=== PATIENT | male | born 1995 | race Caucasian/White ===

== ENCOUNTER 2021-06-02 17:59 | Emergency (ER) | payer MEDICAID ==
[~2021-06-02] VITALS: Ht 165.1 cm; Wt 77.3 kg
[2021-06-02] MEDS ORDERED: ALBU6.7H9 INH (18:10)
[2021-06-02] MEDS ORDERED: PRED20TA PO (18:10)
[2021-06-02 18:58] VITALS: BP 146/80
== END 2021-06-02 19:35 | disposition home or self-care (01) ==
LOC: ER 18:00
DX: J45.909 Unspecified asthma, uncomplicated (principal); Z20.822 Contact with and (suspected) exposure to COVID-19; F17.200 Nicotine dependence, unspecified, uncomplicated; Z88.0 Allergy status to penicillin; Z88.1 Allergy status to other antibiotic agents; Z79.899 Other long term (current) drug therapy
CPT/HCPCS: 36415; 99283; U0003; U0005

== ENCOUNTER 2021-11-15 00:18 | Emergency (ER) | payer MEDICAID ==
[~2021-11-15] VITALS: Ht 165.1 cm; Wt 7.3 kg
[~2021-11-15 00:18] MED LIST: ALBU6.7H9 INH
[2021-11-15] MEDS ORDERED: LIDOcaine 1% W/epiNEPHrine 1:200,000 10ml vial IJ ONE (01:25)
[2021-11-15] MEDS ORDERED: TETanus/Pertussis (Acell)/Diphther VAC/PF (Tdap-Adult) 0.5ml syringe IMVAC ONE (01:25)
[2021-11-15] MEDS ORDERED: LIDOcaine 1% W/epiNEPHrine 1:100,000 20ml vial IJ ONE (01:30)
[2021-11-15] MEDS ORDERED: DOXYCYCLINE 100MG CAPSULE PO STA (02:05)
[2021-11-15] MEDS ORDERED: HYDROcodone/acetaminophen 10/325mg tab PO ONE (02:05)
[2021-11-15] MEDS ORDERED: SULF1TAB49 PO (02:15)
[2021-11-15] MEDS ORDERED: NAPR-56 PO (02:15)
[2021-11-15] MEDS ORDERED: sulfamethoxazole/trimethoprim DS (800/160mg) tablet PO ONE (02:20)
[2021-11-15 02:49] VITALS: BP 121/78
== END 2021-11-15 02:53 | disposition home or self-care (01) ==
LOC: ER 00:18
DX: S81.812A Laceration without foreign body, left lower leg, initial encounter (principal); X58.XXXA Exposure to other specified factors, initial encounter; Y93.89 Activity, other specified; Y92.89 Other specified places as the place of occurrence of the external cause; Y99.8 Other external cause status
CPT/HCPCS: 12002; 90471; 90715; 99283

== ENCOUNTER 2023-02-17 16:20 | Emergency (ER) | payer MEDICAID ==
[~2023-02-17] VITALS: Ht 165.1 cm; Wt 69.0 kg
[~2023-02-17 16:20] MED LIST changes: +ALBU6.7H14 INH; -ALBU6.7H9 INH
[2023-02-17 17:10] LABS: BASOPHILS % (AUTO) 0.3 % (0-1); EOSINOPHILS % (AUTO) 0.2 % (0-6); HEMATOCRIT 47.3 % (42.0-52.0); HEMOGLOBIN 16.7 g/dl (14.0-17.9); LYMPHOCYTES # (AUTO) 3.3 X10'3 (1.1-4.8); LYMPHOCYTES % (AUTO) 30.7 % (21-51); MEAN CORPUSCULAR HEMOGLOBIN 31.6 PG (27.0-31.0); MEAN CORPUSCULAR HGB CONC 35.3 g/dL (33.0-36.5); MEAN CORPUSCULAR VOLUME 89.6 FL (78-98); MEAN PLATELET VOLUME 8.1 FL (7.4-10.4); MONOCYTES # (AUTO) 0.9 X10'3 (0-0.9); MONOCYTES % (AUTO) 8.3 % (2-12); NEUTROPHILS # (AUTO) 6.6 X10'3 (1.8-7.7); NEUTROPHILS % (AUTO) 60.5 % (42-75); PLATELET COUNT 273 X10'3 (140-440); RED BLOOD COUNT 5.28 X10'6 (4.70-6.10); RED CELL DISTRIBUTION WIDTH 13.2 % (11.5-14.5); WHITE BLOOD COUNT 10.9 X10'3 (4.5-11.0)
[2023-02-17 17:19] LABS: ALANINE AMINOTRANSFERASE 28 U/L (12-78); ALBUMIN 4.4 G/DL (3.4-5.0); ALBUMIN/GLOBULIN RATIO 1.3 (1.1-1.5); ALKALINE PHOSPHATASE 84 IU/L (46-116); ANION GAP 7 (8-16); ASPARTATE AMINO TRANSFERASE 16 U/L (10-37); BILIRUBIN,TOTAL 0.8 MG/DL (0.1-1.0); BLOOD UREA NITROGEN 7 MG/DL (7-18); BUN/CREATININE RATIO 7.5 (10.0-20.0); CALCIUM 9.1 MG/DL (8.5-10.1); CHLORIDE 104 MMOL/L (99-107); CREATININE 0.93 MG/DL (0.60-1.10); GLUCOSE 110 MG/DL (70-104); LIPASE < 50 U/L (73-393); POTASSIUM 3.4 MMOL/L (3.5-5.1); SODIUM 139 MMOL/L (135-145); TOTAL CARBON DIOXIDE 27.7 MMOL/L (24-32); TOTAL PROTEIN 7.7 G/DL (6.4-8.2); eGFR > 90 ML/MIN
--- NOTE | 2023-02-17 18:04 | NUR ---
Received patient in room 14.
[2023-02-17] MEDS ORDERED: normal saline 1000ML IV soln IVB ONE (19:10)
[2023-02-17 20:40] LABS: CLARITY,URINE CLEAR (Clear); COLOR,URINE YELLOW (Yellow); GLUCOSE, URINE NEGATIVE (Neg); KETONES,URINE TRACE mg/dl (Neg); LEUKOCYTE ESTERASE ,URINE NEGATIVE (Neg); NITRITES, URINE NEGATIVE (Neg); OCCULT BLOOD,URINE NEGATIVE (Neg); PH,URINE 6.5 (4.8-8.0); PROTEIN,URINE NEGATIVE (Neg)
[2023-02-17 21:10] LABS: UA COLLECTION TYPE VOIDED
[2023-02-17 21:30] VITALS: BP 110/97
== END 2023-02-17 21:32 | disposition home or self-care (01) ==
LOC: ER 16:21
DX: R10.31 Right lower quadrant pain (principal); J45.909 Unspecified asthma, uncomplicated; Z98.890 Other specified postprocedural states; Z88.1 Allergy status to other antibiotic agents; Z88.0 Allergy status to penicillin; Z79.899 Other long term (current) drug therapy
CPT/HCPCS: 36415; 74176; 80053; 81003; 83690; 85025; 96360; 99284; J7030